=== PATIENT | female | born 1965 | race Caucasian/White ===

== ENCOUNTER 2024-02-04 13:48 | Outpatient (CLI) | payer BC | END 2024-02-04 13:49 | disposition home or self-care (01) | LOC: CSHMAMMO 13:48 | PROVIDERS: ATTEND Family Medicine | DX: Z12.31 Encounter for screening mammogram for malignant neoplasm of breast (principal); N64.89 Other specified disorders of breast | CPT/HCPCS: 77067 ==

== ENCOUNTER 2024-02-15 13:40 | Outpatient (CLI) | payer BC | END 2024-02-15 13:41 | disposition home or self-care (01) | LOC: CSHMAMMO 13:40 | PROVIDERS: ATTEND Family Medicine | DX: N64.89 Other specified disorders of breast (principal) | CPT/HCPCS: G0279 ==